=== PATIENT | male | born 1985 | race African-American/Black ===

== ENCOUNTER 2016-12-05 18:43 | Emergency (ER) | payer SELFPAY ==
[~2016-12-05 18:43] MED LIST: DENIES HOME MEDS
== END 2016-12-05 18:45 | disposition home or self-care (01) ==
LOC: ER 18:43
DX: B35.3 Tinea pedis (principal); R59.1 Generalized enlarged lymph nodes; J45.909 Unspecified asthma, uncomplicated; F17.200 Nicotine dependence, unspecified, uncomplicated
CPT/HCPCS: 99283